=== PATIENT | male | born 1985 | race Caucasian/White ===

== ENCOUNTER 2019-12-27 13:59 | Emergency (ER) | payer OTHER ==
[2019-12-27] MEDS ORDERED: Sodium Chloride 0.9% 1000 ML 1,000 ML IV SCH (14:15)
--- NOTE | 2019-12-27 14:23 | ERPHSYRPT ---
- History of Present Illness Time Seen by Provider: 12/27/19 14:18 Source: patient Exam Limitations: no limitations Patient Subjective Stated Complaint: Pt states "I am on my second round of steroids and antibiotics for this. I have been coughing for about 14 days and now when I cough I think I caused a hernia in my upper left belly. IT is unbearable." Triage Nursing Assessment: Pt presented alert and oriented X 3, skin pwd Pt ambulates while guarding his left upper abdomen. Pt has intermittant cough while holding abdomen. Physician History: Pt states "I am on my second round of steroids and antibiotics for this. I have been coughing for about 14 days and now when I cough I think I caused a hernia in my upper left belly. IT is unbearable." no fever, no chest pressure, Timing/Duration: week(s) (two weeks) Cough Quality/Degree: dry cough Possible Cause: no prior episodes Associated Symptoms: denies symptoms International travel in last 2 weeks: No Allergies/Adverse Reactions: No Known Drug Allergies Allergy (Unverified 12/27/19 14:09) Home Medications: Albuterol Common Canister [Proventil Common Canister] 1 puff IH Q4-6HPRN PRN 12/27/19 [History] Doxycycline Hyclate 100 mg PO DAILY 12/27/19 [History] Prednisone 20 mg [Deltasone 20 mg] 20 mg PO DAILY 12/27/19 [History] Hx Tetanus, Diphtheria Vaccination/Date Given: No Hx Influenza Vaccination/Date Given: No Hx Pneumococcal Vaccination/Date Given: No Immunizations Up to Date: Yes - Review of Systems Constitutional: No Fever, No Chills Eyes: No Symptoms Ears, Nose, & Throat: No Symptoms Respiratory: Other (left lower chest wall, left upper quadrant abdominal pain), No Cough, No Dyspnea Cardiac: No Chest Pain, No Edema, No Syncope Abdominal/Gastrointestinal: No Abdominal Pain, No Nausea, No Vomiting, No Diarrhea Genitourinary Symptoms: No Dysuria Musculoskeletal: No Back Pain, No Neck Pain Skin: No Rash Neurological: No Dizziness, No Focal Weakness, No Sensory Changes Psychological: No Symptoms Endocrine: No Symptoms All Other Systems: Reviewed and Negative - Past Medical History Pertinent Past Medical History: No - Past Surgical History Past Surgical History: No - Social History Smoking Status: Never smoker Exposure to second hand smoke: Yes Drug Use: none Patient Lives Alone: No - Nursing Vital Signs Nursing Vital Signs: Initial Vital Signs Temperature 98.1 F 12/27/19 14:04 Pulse Rate 110 H 12/27/19 14:04 Respiratory Rate 24 12/27/19 14:04 Blood Pressure 201/96 12/27/19 14:04 O2 Sat by Pulse Oximetry 98 12/27/19 14:04 Pain Scale Pain Intensity 4 - Physical Exam General Appearance: no apparent distress, alert Eye Exam: PERRL/EOMI, eyes nml inspection Ears, Nose, Throat Exam: normal ENT inspection, TMs normal, pharynx normal, moist mucous membranes Neck Exam: normal inspection, non-tender, supple, full range of motion Respiratory Exam: normal breath sounds, lungs clear, No respiratory distress Cardiovascular Exam: regular rate/rhythm, normal heart sounds Gastrointestinal/Abdomen Exam: soft, tenderness (left upper quadrant. reproducible) Back Exam: normal inspection, No CVA tenderness, No vertebral tenderness Extremity Exam: normal inspection, normal range of motion Neurologic Exam: alert, oriented x 3, cooperative, normal mood/affect, sensation nml, No motor deficits Skin Exam: normal color, warm, dry, No rash Lymphatic Exam: No adenopathy SpO2: 98 - Course Nursing assessment & vital signs reviewed: Yes - Radiology Exams Chest X-ray Interpretation: Reviewed by me, Negative, No Pneumonia, No Pneumothorax Ordered Tests: Active Orders 24 hr Category Date Time Status EKG-ER Only STAT Care 12/27/19 14:13 Active CHEST 2 VIEWS (PA AND LAT) Stat Exams 12/27/19 14:14 Taken CBC W DIFF Stat Lab 12/27/19 14:13 Completed CMP Stat Lab 12/27/19 14:13 Completed Manual Differential NC Stat Lab 12/27/19 14:13 Completed TROPONIN Q3H Lab 12/27/19 14:15 Completed TROPONIN Q3H Lab 12/27/19 17:15 Ordered TROPONIN Q3H Lab 12/27/19 20:15 Ordered TROPONIN Q3H Lab 12/27/19 23:15 Ordered TROPONIN Q3H Lab 12/28/19 02:15 Ordered Peak Expiratory Flow Rate ONCE RT 12/27/19 15:17 Completed Respiratory Therapy Assessment DAILY RT 12/27/19 15:16 Completed Medication Summary Generic Name Dose Route Start Last Admin Trade Name Freq PRN Reason Stop Dose Admin Sodium Chloride 1,000 mls @ 50 mls/hr 12/27/19 14:15 12/27/19 14:39 Sodium Chloride 0.9% 1000 Ml IV 01/26/20 14:14 Not Given .Q20H ALLAN Discontinued Medications Generic Name Dose Route Start Last Admin Trade Name Freq PRN Reason Stop Dose Admin Albuterol Sulfate 2.5 mg 12/27/19 14:25 12/27/19 15:16 Proventil 2.5 Mg/3 Ml Neb IH 12/27/19 14:26 2.5 mg STAT ONE Administration Albuterol Sulfate Confirm 12/27/19 14:58 Proventil 2.5 Mg/3 Ml Neb Administered 12/27/19 14:59 Dose 2.5 mg IH .STK-MED ONE Guaifenesin/Codeine Phosphate 5 ml 12/27/19 14:45 12/27/19 14:48 Robitussin Ac Syrup Unit Dose Cup PO 12/27/19 14:46 5 ml STAT ONE Administration Guaifenesin/Codeine Phosphate Confirm 12/27/19 14:48 Robitussin Ac Syrup Unit Dose Cup Administered 12/27/19 14:49 Dose 5 ml .ROUTE .STK-MED ONE Guaifenesin/Dextromethorphan 10 ml 12/27/19 14:25 12/27/19 14:46 Robitussin-Dm Syrup PO 12/27/19 14:26 Not Given STAT ONE Lab/Rad Data: Laboratory Result Diagrams 12/27/19 14:13 12/27/19 14:13 Laboratory Results 12/27/19 12/27/19 12/27/19 Range/Units 14:15 14:13 14:13 WBC 14.0 H (4.0-10.5) K/mm3 RBC 5.97 H (4.1-5.6) M/mm3 Hgb 16.5 (12.5-18.0) gm/dl Hct 51.8 H (42-50) % MCV 86.8 (78-100) fl MCH 27.6 (26-32) pg MCHC 31.9 L (32-36) g/dl RDW 17.5 H (11.5-14.0) % Plt Count 195 (150-450) K/mm3 MPV 13.1 H (7.5-11.0) fl Segmented Neutrophils 82 H (36.-66.) % Lymphocytes (Manual) 13 L (24-44) % Monocytes (Manual) 5 (0.0-12.0) % Platelet Estimate NORMAL (NORMAL) RBC Morphology NORMAL Sodium 138 (137-145) mmol/L Potassium 4.8 (3.5-5.1) mmol/L Chloride 100 (98-107) mmol/L Carbon Dioxide 28 (22-30) mmol/L Anion Gap 14.9 (5-15) MEQ/L BUN 17 (9-20) mg/dL Creatinine 1.06 (0.66-1.25) mg/dL Estimated GFR > 60.0 ML/MIN Glucose 179 H (74-106) mg/dL Hemoglobin A1c (4.5-6.0) % Calcium 9.6 (8.4-10.2) mg/dL Total Bilirubin 0.60 (0.2-1.3) mg/dL AST 24 (17-59) U/L ALT 26 (0-50) U/L Alkaline Phosphatase 73 (38-126) U/L Troponin I < 0.012 (0.000-0.034) ng/mL Serum Total Protein 7.1 (6.3-8.2) g/dL Albumin 4.0 (3.5-5.0) g/dL 12/27/19 Range/Units 14:00 WBC (4.0-10.5) K/mm3 RBC (4.1-5.6) M/mm3 Hgb (12.5-18.0) gm/dl Hct (42-50) % MCV (78-100) fl MCH (26-32) pg MCHC (32-36) g/dl RDW (11.5-14.0) % Plt Count (150-450) K/mm3 MPV (7.5-11.0) fl Segmented Neutrophils (36.-66.) % Lymphocytes (Manual) (24-44) % Monocytes (Manual) (0.0-12.0) % Platelet Estimate (NORMAL) RBC Morphology Sodium (137-145) mmol/L Potassium (3.5-5.1) mmol/L Chloride (98-107) mmol/L Carbon Dioxide (22-30) mmol/L Anion Gap (5-15) MEQ/L BUN (9-20) mg/dL Creatinine (0.66-1.25) mg/dL Estimated GFR ML/MIN Glucose (74-106) mg/dL Hemoglobin A1c 6.41 H (4.5-6.0) % Calcium (8.4-10.2) mg/dL Total Bilirubin (0.2-1.3) mg/dL AST (17-59) U/L ALT (0-50) U/L Alkaline Phosphatase (38-126) U/L Troponin I (0.000-0.034) ng/mL Serum Total Protein (6.3-8.2) g/dL Albumin (3.5-5.0) g/dL - Progress Progress: improved Air Movement: good Blood Culture(s) Obtained: No Antibiotics given: No Counseled pt/family regarding: lab results, diagnosis, need for follow-up - Departure Departure Disposition: Home Clinical Impression: Bronchitis, Pre-diabetes Condition: Stable Critical Care Time: No Referrals: DOCTOR,NO FAMILY [Primary Care Provider] - Instructions: Acute Bronchitis, Adult (DC), Cough, Adult (DC), Prediabetes (DC) Additional Instructions: Discharge/Care Plan VIVIAN RUBY was seen on 12/27/19 in the Emergency Room. The patient was counseled regarding Diagnosis,Lab results, Imaging studies, need for follow up and when to return to the Emergency Room. Prescriptions given: Discharge Note I have spoken with the patient and/or caregivers. I have explained the patient' s condition, diagnosis and treatment plan based on the information available to me at this time. I have answered the patient's and/or caregiver's questions and addressed any concerns. The patient and/or caregivers have as good understanding of the patient's diagnosis, condition and treatment plan as can be expected at this point. The vital signs have been stable. The patient's condition is stable and appropriate for discharge from the emergency department. The patient will pursue further outpatient evaluation with the primary care physician or other designated or consulting physician as outlined in the discharge instructions. The patient and/or caregivers are agreeable to this plan of care and follow-up instructions have been explained in detail. The patient and/or caregivers have received these instruction. The patient/and or caregivers are aware that any significant change in condition or worsening of symptoms should prompt an immediate return to this or the closest emergency department or call 911. VIVIAN RUBY was seen on 12/27/19 n the Emergency Room. At that time you were treated for an emergent condition, during your visit Laboratory, Radiology and/ or other procedures may have been ordered. It is very important that you follow- up with your Primary Care Physician NO FAMILY DOCTOR within the next 24-48 hours to review your Emergency Room visit and the final results of testing that was ordered. Some test results such as Urine Cultures, Blood Cultures, and other cultures if ordered will not be finalized for 24-48 hours. If you do not have a Primary Care Provider please call the medical records department at [phone] to obtain a copy of your results or you may sign into our patient portal to obtain these results by visiting us @ [email or web address] and completing the following steps: 1. Click on the Patient Portal link 2. Click the Patient Self Enrollment Link to complete the enrollment form and entering your 3. Once the enrollment form is completed you will receive an email with a temporary ID and password at the email address you provided. 4. Next choose a user name and password. Your user name must be at least 4 characters long and your password must be at least 4 characters long. 5. Choose a security question from the list and provide your answer to the question. If you already have signed into the Health Portal you may access your Health Care Information 18/06 by the following steps: 1. Login to our website @ [email or web address] 2. Enter your original user name and password. FAQS The [facility] Health Portal is an online tool that contains your Lab Results, Radiology Reports, Visit History, Discharge Instructions and Health Summary Lab and Radiology Results will not be available for 72 hours on the portal. The Portal is a secure site, passwords are encryted and URLs are re-written so they cannot be copied and pasted. You and authorized family members are the only ones who can access your Portal. Also there is a timeout feature that protects your information if you leave the Portal page open. If you have technical difficulty please use the Contact Us link on the page this will allow you to submit any questions you have regarding the Portal or you may contact the Medical Record Department at [phone]. Prescriptions: Metformin HCl Xr 500 mg [Glucophage XR 500 MG] 500 mg PO DAILY #30 tab Guaifenesin/Codeine Phosphate [Robitussin AC Syrup] 5 ml PO QID #120 ml
[2019-12-27] MEDS ORDERED: PROVENTIL 2.5 MG/3 ML NEB IH ONE ×2 (14:25→14:58)
[2019-12-27] MEDS ORDERED: Robitussin-Dm Syrup PO ONE (14:25)
[2019-12-27] MEDS ORDERED: Robitussin AC Syrup Unit Dose Cup PO ONE (14:45)
[2019-12-27] MEDS ORDERED: Robitussin AC Syrup Unit Dose Cup ONE (14:48)
[2019-12-27 15:08] LABS: Hematocrit 51.8 % (42-50); Hemoglobin 16.5 gm/dl (12.5-18.0); Mean Cell Volume 86.8 fl (78-100); Mean Corpuscular Hemoglobin 27.6 pg (26-32); Mean Corpuscular Hgb Concent. 31.9 g/dl (32-36); Mean Platelet Volume 13.1 fl (7.5-11.0); Platelet Count 195 K/mm3 (150-450); Red Blood Count 5.97 M/mm3 (4.1-5.6); Red Cell Distribution Width 17.5 % (11.5-14.0)
[2019-12-27 15:21] LABS: ALKALINE PHOSPHATASE 73 U/L (38-126); ANION GAP 14.9 MEQ/L (5-15); BLOOD UREA NITROGEN 17 mg/dL (9-20); CHLORIDE 100 mmol/L (98-107); Calcium 9.6 mg/dL (8.4-10.2); Carbon Dioxide 28 mmol/L (22-30); Creatinine 1 1.06 mg/dL (0.66-1.25); Glucose 179 mg/dL (74-106); Potassium 4.8 mmol/L (3.5-5.1); SGOT/AST 24 U/L (17-59); SGPT/ALT 26 U/L (0-50); SODIUM 138 mmol/L (137-145); Total Protein 7.1 g/dL (6.3-8.2)
[2019-12-27 15:31] LABS: Lymphocytes 13 % (24-44); Monocyte 5 % (0.0-12.0); Neutrophils 82 % (36.-66.); Total Cells Counted 100
[2019-12-27 15:32] LABS: Platelet Estimate NORMAL (NORMAL)
[2019-12-27 16:12] VITALS: BP 162/50; PULSE 92; O2SAT 97
--- NOTE | 2019-12-27 19:56 | XRAY ---
Indication: Left chest pain. Short of breath and cough. Comparison: None PA/lateral chest clear. Heart and mediastinal structures within normal limits. Bony thorax intact. Impression: Nonacute chest.
== END 2019-12-27 16:22 | disposition home or self-care (01) ==
LOC: ED 13:59
DX: J40 Bronchitis, not specified as acute or chronic (principal); R73.03 Prediabetes
CPT/HCPCS: 36000; 36415; 71046; 80053; 83036; 84484; 85025; 93005; 94150; 94640; 99284; J7609; A9270-GY